=== PATIENT | male | born 1965 | race Caucasian/White ===

== ENCOUNTER → 2017-06-05 | Outpatient (CLI) | payer BC ==
[~2017-06-05] VITALS: Ht 179.1 cm; Wt 124.8 kg
[~2017-06-05] MED LIST: ANDROGEL1% TOP; NORVASC 10MG10 MG PO
[2017-06-05 09:38] VITALS: BP 156/107; PULSE 63
[2017-06-05 10:55] VITALS: BP 142/98; PULSE 63
[2017-06-05 10:57] VITALS: BP 160/96; PULSE 84
[2017-06-05 10:58] VITALS: BP 158/98; PULSE 71
[2017-06-05 10:59] VITALS: BP 144/92; PULSE 70
== END ==
LOC: COL.CARD 09:15
DX: R06.00 Dyspnea, unspecified (principal); I10 Essential (primary) hypertension; M17.0 Bilateral primary osteoarthritis of knee
CPT/HCPCS: A9502; J2785